=== PATIENT | female | born 1945 | race Asian ===

== ENCOUNTER 2018-10-26 18:56 | Inpatient (IN) | payer OTHER ==
[2018-10-26] MEDS ORDERED: FAMOTIDINE 20 MG/50 ML IVPB 20 MG/50 ML MG IVPB ONE (19:30)
[2018-10-26] MEDS ORDERED: SODIUM CHLORIDE 1,000 ML IV STA (19:30)
--- NOTE | 2018-10-26 19:54 | PDOC ---
History of Present Illness - General History Source: Patient, Family Exam Limitations: No Limitations, Language Barrier - History of Present Illness Initial Comments: 10/26/18 19:46 Source: Pt and Daughters at bedside HPI: 73yo woman PMH R Knee replacement, hysterectomy, DM, HLD, with epigastric pain for the past week. Patient experienced eigastric pain with meals, with associated nausea and NBNB vomiting several times. This started last , the nausea / vomiting worsened over the weekend and the patient presented to [facility], was diagnosed with gastritis and discharged. While home, patient felt better for two days (on pepcid and zofran at home) before worsening on Tuesday and deciding to come in today due to continued pain without an answer. The family feels a CT could help shed light on why their mother has developed new onset stomach pain in her 70s - and says that is the only thing that wasn't done at [facility]. Reports prior heartburn but this feels different and is more abdominal. Patient has had difficulty eating meals because of pain and has to be "forced" to eat. She has reportedly lost 5lbs in the past week due to this anorexia. She has taken Motrin, Alieve, and Tylenol in the past, but has not taken any of these things recently. Meds: per chart All: NKDA PSH: as above PMH: as above <Mat Carbajal - Last Filed: 10/26/18 21:46> <Aron Head I - Last Filed: 10/27/18 00:05> - General Chief Complaint: Pain, Acute Stated Complaint: abd pain Time Seen by Provider: 10/26/18 19:08 Past History - Travel Traveled outside of the country in the last 30 days: No Close contact w/someone who was outside of country & ill: No - Past Medical History Anemia: No Asthma: Yes Cancer: No Cardiac Disorders: No CVA: No COPD: No CHF: No Dementia: No Diabetes: Yes (NIDDM) GI Disorders: Yes (GERD) Disorders: No HTN: No Hypercholesterolemia: Yes Liver Disease: No Seizures: Yes (15 YEARS AGO) Thyroid Disease: No - Surgical History Abdominal Surgery: No Appendectomy: No Cardiac Surgery: No Cholecystectomy: No Lung Surgery: No Neurologic Surgery: Yes (BRAIN TUMOR REMOVED 15 YEARS AGO) Orthopedic Surgery: No - Suicide/Smoking/Psychosocial Hx Smoking History: Never smoked Have you smoked in the past 12 months: No Information on smoking cessation initiated: No Hx Alcohol Use: No Drug/Substance Use Hx: No Substance Use Type: None Hx Substance Use Treatment: No <Mat Carbajal - Last Filed: 10/26/18 21:46> <Aron Head I - Last Filed: 10/27/18 00:05> - Past Medical History Allergies/Adverse Reactions: Allergies Allergy/AdvReac Type Severity Reaction Status Date / Time No Known Drug Allergies Allergy Verified 10/26/18 18:57 Home Medications: Ambulatory Orders Aspirin 81 mg PO DAILY 05/14/13 Losartan Potassium [Cozaar] 50 mg PO DAILY 05/14/13 Simvastatin [Zocor -] 20 mg PO DAILY 05/14/13 Canagliflozin [Invokana] 100 mg PO DAILY 10/26/18 Famotidine [Pepcid] 20 mg PO DAILY 10/26/18 Glipizide [Glipizide ER] 10 mg PO DAILY 10/26/18 Metformin HCl [Glucophage] 1,000 mg PO BID 10/26/18 Sitagliptin Phosphate [Januvia] 50 mg PO DAILY 10/26/18 Review of Systems - Review of Systems Able to Perform ROS?: No (Per family / translating) Is the patient limited Georgian proficient: Yes Constitutional: No: Chills, Fever Respiratory: No: Cough, Shortness of Breath, Wheezing Cardiac (ROS): No: Chest Pain, Irregular Heart Rate, Syncope, Chest Tightness ABD/GI: Yes: Nausea, Poor Appetite, Poor Fluid Intake, Vomiting. No: Abdominal Distended, Blood Streaked Bowels, Constipated, Diarrhea, Rectal Bleeding, Abdominal cramping, Tarry Stools : No: Symptoms Reported Musculoskeletal: No: Symptoms Reported Integumentary: No: Symptoms Reported Neurological: No: Symptoms reported All Other Systems: Reviewed and Negative <Mat Carbajal - Last Filed: 10/26/18 21:46> *Physical Exam - Vital Signs Last Vital Signs Temp Pulse Resp BP Pulse Ox 98.6 F 72 14 160/80 98 10/26/18 18:56 10/26/18 18:56 10/26/18 18:56 10/26/18 18:56 10/26/18 19:31 - Physical Exam Comments: 10/26/18 19:59 Vitals reviewed, hypertensive to 160 SPB, otherwise AFVSS Gen: Elderly woman, resting in bed, no acute distress HEENT: normal morphologies, MMM, EOMI, sclera anicteric, no sublingual jaundice CV: RRR, nl s1/s2, no bruits, no murmurs Pulm: CTABL, normal WOB, no wheezes / rales / rhonchi Abd: soft, nontender, nondistended, no rashes / scars / markings Skin: Warm, dry, no jaundice evident Pulses: 2+ radial and PT Neuro: alert and oriented <Mat Carbajal - Last Filed: 10/26/18 21:46> - Vital Signs Last Vital Signs Temp Pulse Resp BP Pulse Ox 98.6 F 72 14 160/80 98 10/26/18 18:56 10/26/18 18:56 10/26/18 18:56 10/26/18 18:56 10/26/18 19:31 <Aron Head I - Last Filed: 10/27/18 00:05> ED Treatment Course - LABORATORY CBC & Chemistry Diagram: 10/26/18 19:30 10/26/18 19:30 - ADDITIONAL ORDERS Additional order review: Laboratory Results 10/26/18 19:11 POC Glucometer 231 10/26/18 19:11 POC Glucometer 231 - RADIOLOGY Radiology Studies Ordered: Category Date Time Status ABDOMEN/PELVIS CTA W/WO CONTR [CT] Stat CT Scan 10/26/18 19:42 Ordered <Mat Carbajal - Last Filed: 10/26/18 21:46> - LABORATORY CBC & Chemistry Diagram: 10/26/18 19:30 10/26/18 19:30 - ADDITIONAL ORDERS Additional order review: Laboratory Results 10/26/18 10/26/18 10/26/18 21:00 19:55 19:30 Sodium Potassium Chloride Carbon Dioxide Anion Gap BUN Creatinine Est GFR (CKD-EPI)AfAm Est GFR (CKD-EPI)NonAf POC Glucometer Random Glucose Lactic Acid 1.1 Calcium Total Bilirubin AST ALT Alkaline Phosphatase Creatine Kinase Troponin I Total Protein Albumin Lipase 370 Urine Color Yellow Urine Appearance Clear Urine pH 5.5 Urine Protein Negative Urine Glucose (UA) 2+ H Urine Ketones Trace Urine Blood 1+ H Urine Nitrite Negative Urine Bilirubin Negative Urine Urobilinogen 0.2 Ur Leukocyte Esterase Negative Urine RBC 2-5 Urine WBC 0-2 10/26/18 10/26/18 10/26/18 19:30 19:30 19:11 Sodium 134 L Potassium 4.8 Chloride 96 L Carbon Dioxide 29 Anion Gap 9 BUN 18.0 Creatinine 0.7 Est GFR (CKD-EPI)AfAm 100.32 Est GFR (CKD-EPI)NonAf 86.56 POC Glucometer 231 Random Glucose 253 H Lactic Acid Calcium 10.0 Total Bilirubin 0.2 AST 15 ALT 19 Alkaline Phosphatase 67 Creatine Kinase 42 Troponin I 0.04 Total Protein 7.5 Albumin 4.1 Lipase Urine Color Urine Appearance Urine pH Urine Protein Urine Glucose (UA) Urine Ketones Urine Blood Urine Nitrite Urine Bilirubin Urine Urobilinogen Ur Leukocyte Esterase Urine RBC Urine WBC 10/26/18 10/26/18 19:30 19:11 RBC 4.99 MCV 81.4 MCHC 33.4 RDW 13.0 MPV 8.8 Neutrophils % 70.9 Lymphocytes % 18.1 Monocytes % 9.9 Eosinophils % 0.7 Basophils % 0.4 POC Glucometer 231 - Medications Given in the ED: ED Medications Discontinued Medications Generic Name Dose Route Start Last Admin Trade Name Abimaelq PRN Reason Stop Dose Admin Famotidine/Sodium Chloride 20 mg in 50 mls @ 100 mls/hr 10/26/18 19:30 19:47 Pepcid 20 Mg Premixed Ivpb - IVPB 10/26/18 19:59 100 mls/hr ONCE ONE Administration Sodium Chloride 1,000 mls @ 1,000 mls/hr 10/26/18 19:30 10/26/18 19:45 Normal Saline - IV 10/26/18 20:29 1,000 mls/hr ASDIR STA Administration <Aron Head I - Last Filed: 10/27/18 00:05> Medical Decision Making - Medical Decision Making 10/26/18 19:54 73yo woman with PMH R Knee replacement, hysterectomy, DM, HLD, presenting with 1 week of epigastric pain, nausea / NBNB vomiting associated with meals. Notable for two ED visits in the past week. Exam notable for lack of abdominal tenderness - however patient is denying pain at time of exam as well. Given lack of tenderness, will r/o mesenteric ischemia, r/o ACS, and give empiric treatment for gastritis given it remains most likely. The temporal relationship with food points towards biliary pathology, however RUQ exam is unremarkable and there no need for RUQ US in patient with CTA ordered. -CBC, CMP, Cardiac Profile, Lipase, Lactate -CTA Abdomen / Pelvis w/w/o contrast -Pepcid 20mg IV -1L IVF 10/26/18 21:30 -No leukocytosis (8.3), no anemia -Na 134 (up from reported 128) -BGM 231 on arrival, Glu 253 in CMP -Lactate 1.1 -Lipase 370 -Troponin 0.04 -UA without signs of UTI -CTA pending 10/26/18 21:[address] Dove <Mat Carbajal - Last Filed: 10/26/18 21:46> *DC/Admit/Observation/Transfer <Mat Carbajal - Last Filed: 10/26/18 21:46> - Discharge Dispostion Decision to Admit order: Yes <Aron Head I - Last Filed: 10/27/18 00:05> Diagnosis at time of Disposition: Epigastric pain Gastritis Qualifiers: Gastritis type: unspecified gastritis Chronicity: acute Gastritis bleeding: without bleeding Qualified Code(s): K29.00 - Acute gastritis without bleeding - Discharge Dispostion Condition at time of disposition: Stable
[2018-10-26 20:06] LABS: BASO % 0.4 % (0-2.0); EOS % 0.7 % (0-4.5); HEMATOCRIT 40.6 % (32.4-45.2); HEMOGLOBIN 13.6 GM/dl (10.7-15.3); LYMPH % 18.1 % (8-40); MCH 27.2 pg (25.7-33.7); MCHC 33.4 g/dl (32.0-36.0); MEAN CELL VOLUME 81.4 fl (80-96); MEAN PLT VOLUME 8.8 fl (7.5-11.1); MONO % 9.9 % (3.8-10.2); NEUT % 70.9 % (42.8-82.8); PLATELET COUNT 369 K/MM3 (134-434); RBC 4.99 M/mm3 (3.60-5.2); WHITE BLOOD COUNT 8.3 K/mm3 (4.0-10.8)
[2018-10-26 20:10] LABS: ALBUMIN 4.1 g/dl (3.4-5.0); BILIRUBIN,TOTAL 0.2 mg/dl (0.2-1); CREATININE 0.7 mg/dl (0.55-1.3); POTASSIUM 4.8 mmol/L (3.5-5.1); TOT PROT 7.5 g/dl (6.4-8.2)
--- NOTE | 2018-10-26 22:08 | PDOC ---
Documentation entered by Mónica Horowitz SCRIBE, acting as scribe for Aron Head MD. Aron Head MD: This documentation has been prepared by the Carlos Manuel morales Xhesika, SCRIBE, under my direction and personally reviewed by me in its entirety. I confirm that the documentation accurately reflects all work, treatment, procedures, and medical decision making performed by me. Attending Attestation - Resident Resident Name: SolomonMat - ED Attending Attestation I have performed the following: I have examined & evaluated the patient, The case was reviewed & discussed with the resident, I agree w/resident's findings & plan, Exceptions are as noted - HPI HPI: 10/26/18 19:46 The patient is a 73 year old female, with a significant PMH of DM, HLD, and R knee hysterectomy who presents to the emergency department with 1 week of epigastric pain. Patient is non argentine speaking so family at bedside provides the history. As per family, the patient was seen at [facility] on Tuesday for epigastric pain associated with nausea and vomiting that has not subsided which prompted their arrival to the ED. Patient states her pain is associated with meals. Patient states she has been taking pepcid and drinking fluids with mild relief of symptoms. Pt notes she has been eating less due to her pain and notes she has lost 5 pounds since the onset of her symptoms. FAMILY HISTORY: no pertinent history SOCIAL HISTORY: Pt lives with family and is employed. MEDICATIONS: reviewed ALLERGIES: As per nursing notes - Physicial Exam PE: 10/26/18 19:47 General: Well-nourished well-developed individual, no acute distress HEENT: Throat: Normal, tonsils normal, no erythema or exudate Neck: Supple, no meningeal signs, no lymphadenopathy Eyes::Pupils equal reactive and round, extraocular motion intact Chest: Nontender to palpation Cardiac: S1-S2 normal, regular rate and rhythm, no murmurs rubs or gallops Respiratory: Lungs clear to auscultation bilateral Abdomen: Soft, nondistended, normal bowel sounds, nontender to palpation diffusely Extremities: Warm, dry, no cyanosis, clubbing, or edema Skin: No rashes Neuro: Alert and oriented x3, nonfocal exam, grossly intact, normal gait Psych: Normal mood and affect - Medical Decision Making 10/26/18 19:48 Assessment and plan: This is a 73-year-old female with history of hypertension , coronary artery disease, diabetes, high cholesterol who comes in complaining of approximately one week of epigastric pain. Patient was at another emergency room 3 days ago for similar symptoms and was discharged with antacids. Patient has been taking them says that they are not helping. Patient now returns for reevaluation to our emergency department. Workup initiated including CBC, comp, lactic acid, lipase, cardiac enzymes, chest x-ray, EKG, ETA CAT scan of the abdomen to rule out mesenteric ischemia as well as any other intra-abdominal pathology. 10/26/18 23:49 CAT scan shows a number of incidental type findings. The there is a cyst in the pancreatic tail that is 1.7 x 1 cm. There is some mild, and bile duct dilation of 0.8 cm previously was 0.5 cm there is a fatty liver, there is a left adrenal nodule of 1.5 cm seen on prior CT. There is a left adrenal angiomyolipoma seen on prior CT. There is a diverticulum seen on prior CT. And there are 2 areas that are partially imaged in the right lower lobe most likely inflammatory but may be nodules. Discussed with patient and family findings from the CAT scan and recommended that patient follow up with a surgeon for possible gallbladder removal as well as with her primary care doctor further evaluate the inflammatory/scarring of the lungs versus nodules. 10/26/18 23:51 Patient's troponin was measurable at 0.04 but still within normal limits. Patient's heart score however is 5 based on her age and multiple risk factors and an abnormal EEG so patient will be placed in observation bed to rule her out. 10/26/18 23:52 Heart Score/ECG Review - History History: Slightly suspicious - Electrocardiogram EKG: Non specific repolarization disturbance - Age Age: >/= 65 - Risk Factors Based on the list above the patient has:: >/=3 risk factors or Hx atherosclerotic disease - Troponin Troponin: </= normal limit - Score Heart Score - Total: 5
[2018-10-27] MEDS ORDERED: SODIUM CHLORIDE 1,000 ML IV SCH (01:00)
[2018-10-27 01:26] VITALS: BMI 25.0
[2018-10-27 07:50] LABS: CALCIUM 9.5 mg/dl (8.5-10); CREATININE 0.6 mg/dl (0.55-1.3); POTASSIUM 4.2 mmol/L (3.5-5.1)
[2018-10-27 07:56] LABS: HEMATOCRIT 40.7 % (32.4-45.2); HEMOGLOBIN 13.6 GM/dl (10.7-15.3); MCH 27.6 pg (25.7-33.7); MCHC 33.5 g/dl (32.0-36.0); MEAN CELL VOLUME 82.6 fl (80-96); MEAN PLT VOLUME 8.6 fl (7.5-11.1); PLATELET COUNT 357 K/MM3 (134-434); RBC 4.93 M/mm3 (3.60-5.2); RDW 13.3 % (11.6-15.6); WHITE BLOOD COUNT 7.2 K/mm3 (4.0-10.8)
--- NOTE | 2018-10-27 08:31 | HP ---
CHIEF COMPLAINT: Abdominal pain PCP: Dr. Lora Cardiology: Dr. Arceo HISTORY OF PRESENT ILLNESS: 73 year-old female with a PMH significant for HLD, Type II NIDDM, and GERD who was brought by family to the ED for evaluation of abdominal pain, nausea, and vomiting x 1 week. Patient experienced epigastric pain, nausea, and vomiting with meals that began on 10/19. Over the weekend she presented to the [facility] ED, was diagnosed with gastritis, and discharged. Her symptoms improved with Pepcid and Zofran, but then worsened again prompting her to come to the [place] ED. Patient reports difficulty eating meals because of pain and has to be "forced" to eat. She has lost 5 lbs in the past week. ER course was notable for: (1) Troponin neg x 2 (2) CTA abd/pelvis: 1.7 x 1 cm pancreatic tail cystic lesion; dilated CBD 0.8cm Recent Travel: PAST MEDICAL HISTORY: Hyperlipidemia Type II NIDDM GERD Seizure x 15 years ago PAST SURGICAL HISTORY: Hysterectomy-right salpingo-oopherectomy 2014 Suburethral sling Brain tumor resection x 15 years Right knee replacement Social History: Smoking: never Alcohol: no Drugs: no Family History: Allergies No Known Drug Allergies Allergy (Verified 10/26/18 18:57) HOME MEDICATIONS: Home Medications Medication Instructions Recorded Aspirin 81 mg PO DAILY 05/14/13 Losartan Potassium [Cozaar] 50 mg PO DAILY 05/14/13 Simvastatin [Zocor -] 20 mg PO DAILY 05/14/13 Canagliflozin [Invokana] 100 mg PO DAILY 10/26/18 Famotidine [Pepcid] 20 mg PO DAILY 10/26/18 Glipizide [Glipizide ER] 10 mg PO DAILY 10/26/18 Metformin HCl [Glucophage] 1,000 mg PO BID 10/26/18 Sitagliptin Phosphate [Januvia] 50 mg PO DAILY 10/26/18 REVIEW OF SYSTEMS CONSTITUTIONAL: Absent: fever, chills, diaphoresis, generalized weakness, malaise, loss of appetite, weight change HEENT: Absent: rhinorrhea, nasal congestion, throat pain, throat swelling, difficulty swallowing, mouth swelling, ear pain, eye pain, visual changes CARDIOVASCULAR: Absent: chest pain, syncope, palpitations, irregular heart rate, lightheadedness , peripheral edema RESPIRATORY: Absent: cough, shortness of breath, dyspnea with exertion, orthopnea, wheezing, stridor, hemoptysis GASTROINTESTINAL: Absent: abdominal pain, abdominal distension, nausea, vomiting, diarrhea, constipation, melena, hematochezia GENITOURINARY: Absent: dysuria, frequency, urgency, hesitancy, hematuria, flank pain, genital pain MUSCULOSKELETAL: Absent: myalgia, arthralgia, joint swelling, back pain, neck pain SKIN: Absent: rash, itching, pallor HEMATOLOGIC/IMMUNOLOGIC: Absent: easy bleeding, easy bruising, lymphadenopathy, frequent infections ENDOCRINE: Absent: unexplained weight gain, unexplained weight loss, heat intolerance, cold intolerance NEUROLOGIC: Absent: headache, focal weakness or paresthesias, dizziness, unsteady gait, seizure, mental status changes, bladder or bowel incontinence PSYCHIATRIC: Absent: anxiety, depression, suicidal or homicidal ideation, hallucinations. PHYSICAL EXAMINATION Vital Signs - 24 hr 10/26/18 10/26/18 10/27/18 18:56 19:31 00:44 Temperature 98.6 F 98.4 F Pulse Rate 72 Pulse Rate [ 67 Left] Respiratory 14 18 Rate Blood Pressure 160/80 Blood Pressure 141/80 [Right Arm] O2 Sat by Pulse 96 98 97 Oximetry (%) 10/27/18 10/27/18 10/27/18 01:07 01:33 06:25 Temperature 98.5 F Pulse Rate 63 Pulse Rate [ Left] Respiratory 18 Rate Blood Pressure 135/56 L Blood Pressure [Right Arm] O2 Sat by Pulse 100 100 99 Oximetry (%) 10/27/18 06:27 Temperature 98.5 F Pulse Rate 73 Pulse Rate [ Left] Respiratory 18 Rate Blood Pressure 149/67 Blood Pressure [Right Arm] O2 Sat by Pulse Oximetry (%) GENERAL: Awake, alert, and fully oriented, in no acute distress. Feels hungry. LUNGS: Breath sounds equal, clear to auscultation bilaterally. No wheezes, and no crackles. No accessory muscle use. HEART: Regular rate and rhythm, S1 and S2 ABDOMEN: Soft, nontender, not distended, normoactive bowel sounds UPPER EXTREMITIES: 2+ pulses, warm, well-perfused. No cyanosis. No clubbing. No peripheral edema. LOWER EXTREMITIES: 2+ pulses, warm, well-perfused. No calf tenderness. No peripheral edema. NEUROLOGICAL: Cranial nerves II-XII intact. Normal speech. Normal gait. Laboratory Results - last 24 hr 10/26/18 10/26/18 10/26/18 19:11 19:30 19:30 WBC RBC Hgb Hct MCV MCH MCHC RDW Plt Count MPV Absolute Neuts (auto) Neutrophils % Lymphocytes % Monocytes % Eosinophils % Basophils % Sodium 134 L Potassium 4.8 Chloride 96 L Carbon Dioxide 29 Anion Gap 9 BUN 18.0 Creatinine 0.7 Est GFR (CKD-EPI)AfAm 100.32 Est GFR (CKD-EPI)NonAf 86.56 POC Glucometer 231 Random Glucose 253 H Lactic Acid Calcium 10.0 Total Bilirubin 0.2 AST 15 ALT 19 Alkaline Phosphatase 67 Creatine Kinase 42 Troponin I 0.04 Total Protein 7.5 Albumin 4.1 Lipase Urine Color Urine Appearance Urine pH Urine Protein Urine Glucose (UA) Urine Ketones Urine Blood Urine Nitrite Urine Bilirubin Urine Urobilinogen Ur Leukocyte Esterase Urine RBC Urine WBC 10/26/18 10/26/18 10/26/18 19:30 19:30 19:55 WBC 8.3 RBC 4.99 Hgb 13.6 Hct 40.6 MCV 81.4 MCH 27.2 MCHC 33.4 RDW 13.0 Plt Count 369 MPV 8.8 Absolute Neuts (auto) 5.9 Neutrophils % 70.9 Lymphocytes % 18.1 Monocytes % 9.9 Eosinophils % 0.7 Basophils % 0.4 Sodium Potassium Chloride Carbon Dioxide Anion Gap BUN Creatinine Est GFR (CKD-EPI)AfAm Est GFR (CKD-EPI)NonAf POC Glucometer Random Glucose Lactic Acid 1.1 Calcium Total Bilirubin AST ALT Alkaline Phosphatase Creatine Kinase Troponin I Total Protein Albumin Lipase 370 Urine Color Urine Appearance Urine pH Urine Protein Urine Glucose (UA) Urine Ketones Urine Blood Urine Nitrite Urine Bilirubin Urine Urobilinogen Ur Leukocyte Esterase Urine RBC Urine WBC 10/26/18 10/27/18 10/27/18 21:00 02:00 06:14 WBC RBC Hgb Hct MCV MCH MCHC RDW Plt Count MPV Absolute Neuts (auto) Neutrophils % Lymphocytes % Monocytes % Eosinophils % Basophils % Sodium Potassium Chloride Carbon Dioxide Anion Gap BUN Creatinine Est GFR (CKD-EPI)AfAm Est GFR (CKD-EPI)NonAf POC Glucometer 91 Random Glucose Lactic Acid Calcium Total Bilirubin AST ALT Alkaline Phosphatase Creatine Kinase Troponin I 0.03 Total Protein Albumin Lipase Urine Color Yellow Urine Appearance Clear Urine pH 5.5 Urine Protein Negative Urine Glucose (UA) 2+ H Urine Ketones Trace Urine Blood 1+ H Urine Nitrite Negative Urine Bilirubin Negative Urine Urobilinogen 0.2 Ur Leukocyte Esterase Negative Urine RBC 2-5 Urine WBC 0-2 10/27/18 10/27/18 07:00 07:00 WBC 7.2 RBC 4.93 Hgb 13.6 Hct 40.7 MCV 82.6 MCH 27.6 MCHC 33.5 RDW 13.3 Plt Count 357 MPV 8.6 Absolute Neuts (auto) Neutrophils % Lymphocytes % Monocytes % Eosinophils % Basophils % Sodium 137 Potassium 4.2 Chloride 99 Carbon Dioxide 30 Anion Gap 8 BUN 14.0 Creatinine 0.6 Est GFR (CKD-EPI)AfAm 105.54 Est GFR (CKD-EPI)NonAf 91.06 POC Glucometer Random Glucose 109 H Lactic Acid Calcium 9.5 Total Bilirubin AST ALT Alkaline Phosphatase Creatine Kinase Troponin I Total Protein Albumin Lipase Urine Color Urine Appearance Urine pH Urine Protein Urine Glucose (UA) Urine Ketones Urine Blood Urine Nitrite Urine Bilirubin Urine Urobilinogen Ur Leukocyte Esterase Urine RBC Urine WBC ASSESSMENT/PLAN 73 year-old female with a PMH significant for HLD, Type II NIDDM, and GERD. Admitted for epigastric pain, nausea, vomiting x 1 week. Epigastric pain Nausea, vomiting h/o GERD --afebrile, no leukocytosis --CTAP: dilated CBC 0.8cm but LFTs wnl, gallbladder unremarkable --IV protonix --discussed with GI, trial of PPI with outpatient EGD, advance diet as tolerated Pancreatic tail cystic lesion --CTAP: 1.7 x 1.0 cm seen on CTA --needs outpatient follow up r/o ACS --troponins neg x 3 --echo done pending dictation --telemetry monitoring --cardiology consult Hyperlipidemia --continue Lipitor Type II NIDDM --Novolog sliding scale coverage --continue losartan FEN Fluids: NS@75mL/hr Electrolytes: replete as indicated Nutrition: clears DVT prophylaxis: subq lovenox Dispo: continues to require inpatient care. Discussed with daughter Pancreatic tail cystic lesion Dilated CBD 0.8cm Visit type - Emergency Visit Emergency Visit: Yes ED Registration Date: 10/27/18 Care time: The patient presented to the Emergency Department on the above date and was hospitalized for further evaluation of their emergent condition. - New Patient This patient is new to me today: Yes Date on this admission: 10/27/18 - Critical Care Critical Care patient: No
[2018-10-27] MEDS ORDERED: FAMOTIDINE 20 MG TABLET PO SCH (10:00)
[2018-10-27] MEDS ORDERED: LOSARTAN POTASSIUM 50 MG TABLET (FP) PO SCH (10:00)
[2018-10-27] MEDS ORDERED: INSULIN SLIDING SCALE (NOVOLOG) 1 VIAL SQ SCH (11:00)
[2018-10-27] MEDS ORDERED: PANTOPRAZOLE SODIUM 40 MG VIAL IVPUSH SCH (11:15)
--- NOTE | 2018-10-27 11:31 | EKG ---
Test Reason : Blood Pressure : / mmHG Vent. Rate : 068 BPM Atrial Rate : 068 BPM P-R Int : 140 ms QRS Dur : 136 ms QT Int : 470 ms P-R-T Axes : 041 -40 010 degrees QTc Int : 499 ms NORMAL SINUS RHYTHM LEFT AXIS DEVIATION RIGHT BUNDLE BRANCH BLOCK NONSPECIFIC T WAVE ABNORMALITY ABNORMAL ECG WHEN COMPARED WITH ECG OF 14-MAY-2013 13:27, NO SIGNIFICANT CHANGE WAS FOUND Confirmed by ARAVIND RASHID, MARAH ([id number]) on 10/27/2018 11:31:23 AM Referred By: DR RIZZO Confirmed By:MARAH NAAZRIO MD
[2018-10-27] MEDS ORDERED: ENOXAPARIN NA (PORCINE) 40 MG/0.4 ML DISP.SYRIN SQ SCH (13:45)
[2018-10-27 14:00] VITALS: BP 117/55; PULSE 61; TEMP 98.1
--- NOTE | 2018-10-27 14:40 | ECHO ---
Name: INÉS MORGAN Exam:Adult Echocardiogram Study Date: 10/27/2018 01:42 PM Age: 73 yrs Reason For Study: epigastric pain Height: 63 in Weight: 141 lb BSA: 1.7 m2 MMode/2D Measurements & Calculations IVSd: 1.2 cm Ao root diam: 2.9 cm LVIDd: 4.3 cm LA dimension: 2.9 cm LVIDs: 2.9 cm LVPWd: 1.1 cm EDV(Teich): 81.9 ml LVOT diam: 2.0 cm ESV(Teich): 32.1 ml Doppler Measurements & Calculations MV E max carin: 62.5 cm/sec MV A max carin: 83.3 cm/sec MV dec slope: 330.6 cm/sec2 MV E/A: 0.75 Ao V2 max: 175.1 cm/sec LV V1 max P.7 mmHg Ao max P.3 mmHg LV V1 max: 138.6 cm/sec VIRGINIE(V,D): 2.5 cm2 TR max carin: 198.9 cm/sec TR max P.8 mmHg Left Ventricle There is mild concentric left ventricular hypertrophy. Left ventricular systolic function is normal. Ejection Fraction = 55-60%. The transmitral spectral Doppler flow pattern is suggestive of impaired LV relaxat ion. The left ventricular wall motion is normal. Right Ventricle The right ventricle is normal in size and function. Atria Normal left and right atrial size and function. Mitral Valve The mitral valve is normal in structure and function. There is no mitral valve stenosis. There is tra ce to mild mitral regurgitation. Tricuspid Valve The tricuspid valve is normal in structure and function. There is Trace to mild tricuspid regurgitati on. Aortic Valve The aortic valve opens well. No hemodynamically significant valvular aortic stenosis. Mild aortic regurgitation. Pulmonic Valve The pulmonic valve is not well seen, but is grossly normal. There is no pulmonic valvular stenosis. T race pulmonic valvular regurgitation. Great Vessels The aortic root is normal size. Pericardium/Pleura There is no pericardial effusion. Interpretation Summary There is mild concentric left ventricular hypertrophy. Left ventricular systolic function is normal. Ejection Fraction = 55-60%. The right ventricle is normal in size and function. Mild aortic regurgitation. There is trace to mild mitral regurgitation. The aortic root is normal size. There is no pericardial effusion. MD Odom *Ernie 10/27/2018 02:39 PM
--- NOTE | 2018-10-27 15:29 | CON.CARD ---
Consult Consult Specialty:: Cardiology Referred by:: Medicine Reason for Consultation:: epigastric pain - History of Present Illness Chief Complaint: epigastric pain, nausea, vomiting History of Present Illness: 73F h/o HLD, DM, GERD p/w abd pain, nausea, vomiting for the last week. Went to [facility] and was diagnosed with gastritis and discharged, symptoms initially improved with pepcid and zofran and then had worsening symptoms again where she was vomiting. No chest pain, palps, dizziness, dyspnea. Currently feels better , no nausea, abd pain Pancreatic tail cystic lesion Dilated CBD 0.8cm Visit type - Emergency Visit Emergency Visit: Yes ED Registration Date: 10/27/18 Care time: The patient presented to the Emergency Department on the above date and was hospitalized for further evaluation of their emergent condition. - New Patient This patient is new to me today: Yes Date on this admission: 10/27/18 - Critical Care Critical Care patient: No - Past Medical History ...: No - Alcohol/Substance Use Hx Alcohol Use: No - Smoking History Smoking history: Never smoked Have you smoked in the past 12 months: No Home Medications - Allergies Allergies/Adverse Reactions: Allergies Allergy/AdvReac Type Severity Reaction Status Date / Time No Known Drug Allergies Allergy Verified 10/26/18 18:57 - Home Medications Home Medications: Ambulatory Orders Aspirin 81 mg PO DAILY 05/14/13 Losartan Potassium [Cozaar] 50 mg PO DAILY 05/14/13 Simvastatin [Zocor -] 20 mg PO DAILY 05/14/13 Canagliflozin [Invokana] 100 mg PO DAILY 10/26/18 Famotidine [Pepcid] 20 mg PO DAILY 10/26/18 Glipizide [Glipizide ER] 10 mg PO DAILY 10/26/18 Metformin HCl [Glucophage] 1,000 mg PO BID 10/26/18 Sitagliptin Phosphate [Januvia] 50 mg PO DAILY 10/26/18 Family Disease History - Family Disease History Family History: Unremarkable Review of Systems - Review of Systems Constitutional: reports: No Symptoms Eyes: reports: No Symptoms HENT: reports: No Symptoms Neck: reports: No Symptoms Cardiovascular: reports: No Symptoms Respiratory: reports: No Symptoms Gastrointestinal: reports: Abdominal Pain, Vomiting Genitourinary: reports: No Symptoms Musculoskeletal: reports: No Symptoms Integumentary: reports: No Symptoms Neurological: reports: No Symptoms Endocrine: reports: No Symptoms Hematology/Lymphatic: reports: No Symptoms Psychiatric: reports: No Symptoms Vital Signs: Vital Signs Temperature 98.1 F 10/27/18 13:59 Pulse Rate 61 10/27/18 13:59 Respiratory Rate 17 10/27/18 13:59 Blood Pressure 117/55 L 10/27/18 13:59 O2 Sat by Pulse Oximetry (%) 96 10/27/18 13:59 Constitutional: Yes: Well Nourished, No Distress, Calm Eyes: Yes: Conjunctiva Clear, EOM Intact HENT: Yes: Atraumatic, Normocephalic Neck: Yes: Supple, Trachea Midline Respiratory: Yes: Regular, CTA Bilaterally Gastrointestinal: Yes: Normal Bowel Sounds, Soft Cardiovascular: Yes: Regular Rate and Rhythm JVD: No Heart Sounds: Yes: S1, S2 Edema: No Peripheral Pulses WNL: Yes Integumentary: No: Jaundice Neurological: Yes: Alert, Oriented Psychiatric: No: Agitated - Other Data Labs, Other Data: CBC, BMP 10/27/18 07:00 10/27/18 07:00 Troponin, BNP 10/26/18 10/27/18 10/27/18 19:30 02:00 11:10 Troponin I 0.04 0.03 0.04 Troponin, BNP 10/26/18 10/27/18 10/27/18 19:30 02:00 11:10 Troponin I 0.04 0.03 0.04 Assessment/Plan EKG: sinus, LAD, RBBB echo 10/2018 mild conc LVH, nl LV function, RV nl, mild AR, tr to mild MR 73F h/o HLD, DM, GERD p/w epigastric pain, nausea, vomiting Epigastric pain, nausea, vomiting - trop neg x 3, EKG no ischemic changes - unlikely ACS - echo unremarkable, less likely cardiac etiology - GI consulted - has pancreatic cyst and mildly dilated CBD, plan for outpatient MRCP and EGD HLD - cont statin DM - manage per primary - cont losartan
--- NOTE | 2018-10-27 15:42 | DS ---
Physical Exam: SUBJECTIVE: Patient seen and examined OBJECTIVE: Vital Signs Period Temp Pulse Resp BP Sys/Harrison Pulse Ox Last 24 Hr 98.1 F-98.6 F 61-73 14-18 117-160/55-80 96-100 PHYSICAL EXAM GENERAL: The patient is awake, alert, and fully oriented, in no acute distress. HEAD: Normal with no signs of trauma. EYES: PERRL, extraocular movements intact, sclera anicteric, conjunctiva clear. ENT: Ears normal, nares patent, oropharynx clear without exudates, moist mucous membranes. NECK: Trachea midline, full range of motion, supple. LUNGS: Breath sounds equal, clear to auscultation bilaterally, no wheezes, no crackles, no accessory muscle use. HEART: Regular rate and rhythm, S1, S2 without murmur, rub or gallop. ABDOMEN: Soft, nontender, nondistended, normoactive bowel sounds, no guarding, no rebound, no hepatosplenomegaly, no masses. EXTREMITIES: 2+ pulses, warm, well-perfused, no edema. NEUROLOGICAL: Cranial nerves II through XII grossly intact. Normal speech, gait not observed. PSYCH: Normal mood, normal affect. SKIN: Warm, dry, normal turgor, no rashes or lesions noted. LABS Laboratory Results - last 24 hr 10/26/18 10/26/18 10/26/18 19:11 19:30 19:30 WBC RBC Hgb Hct MCV MCH MCHC RDW Plt Count MPV Absolute Neuts (auto) Neutrophils % Lymphocytes % Monocytes % Eosinophils % Basophils % Sodium 134 L Potassium 4.8 Chloride 96 L Carbon Dioxide 29 Anion Gap 9 BUN 18.0 Creatinine 0.7 Est GFR (CKD-EPI)AfAm 100.32 Est GFR (CKD-EPI)NonAf 86.56 POC Glucometer 231 Random Glucose 253 H Lactic Acid Calcium 10.0 Total Bilirubin 0.2 AST 15 ALT 19 Alkaline Phosphatase 67 Creatine Kinase 42 Troponin I 0.04 Total Protein 7.5 Albumin 4.1 Lipase Urine Color Urine Appearance Urine pH Urine Protein Urine Glucose (UA) Urine Ketones Urine Blood Urine Nitrite Urine Bilirubin Urine Urobilinogen Ur Leukocyte Esterase Urine RBC Urine WBC 10/26/18 10/26/18 10/26/18 19:30 19:30 19:55 WBC 8.3 RBC 4.99 Hgb 13.6 Hct 40.6 MCV 81.4 MCH 27.2 MCHC 33.4 RDW 13.0 Plt Count 369 MPV 8.8 Absolute Neuts (auto) 5.9 Neutrophils % 70.9 Lymphocytes % 18.1 Monocytes % 9.9 Eosinophils % 0.7 Basophils % 0.4 Sodium Potassium Chloride Carbon Dioxide Anion Gap BUN Creatinine Est GFR (CKD-EPI)AfAm Est GFR (CKD-EPI)NonAf POC Glucometer Random Glucose Lactic Acid 1.1 Calcium Total Bilirubin AST ALT Alkaline Phosphatase Creatine Kinase Troponin I Total Protein Albumin Lipase 370 Urine Color Urine Appearance Urine pH Urine Protein Urine Glucose (UA) Urine Ketones Urine Blood Urine Nitrite Urine Bilirubin Urine Urobilinogen Ur Leukocyte Esterase Urine RBC Urine WBC 10/26/18 10/27/18 10/27/18 21:00 02:00 06:14 WBC RBC Hgb Hct MCV MCH MCHC RDW Plt Count MPV Absolute Neuts (auto) Neutrophils % Lymphocytes % Monocytes % Eosinophils % Basophils % Sodium Potassium Chloride Carbon Dioxide Anion Gap BUN Creatinine Est GFR (CKD-EPI)AfAm Est GFR (CKD-EPI)NonAf POC Glucometer 91 Random Glucose Lactic Acid Calcium Total Bilirubin AST ALT Alkaline Phosphatase Creatine Kinase Troponin I 0.03 Total Protein Albumin Lipase Urine Color Yellow Urine Appearance Clear Urine pH 5.5 Urine Protein Negative Urine Glucose (UA) 2+ H Urine Ketones Trace Urine Blood 1+ H Urine Nitrite Negative Urine Bilirubin Negative Urine Urobilinogen 0.2 Ur Leukocyte Esterase Negative Urine RBC 2-5 Urine WBC 0-2 10/27/18 10/27/18 10/27/18 07:00 07:00 09:51 WBC 7.2 RBC 4.93 Hgb 13.6 Hct 40.7 MCV 82.6 MCH 27.6 MCHC 33.5 RDW 13.3 Plt Count 357 MPV 8.6 Absolute Neuts (auto) Neutrophils % Lymphocytes % Monocytes % Eosinophils % Basophils % Sodium 137 Potassium 4.2 Chloride 99 Carbon Dioxide 30 Anion Gap 8 BUN 14.0 Creatinine 0.6 Est GFR (CKD-EPI)AfAm 105.54 Est GFR (CKD-EPI)NonAf 91.06 POC Glucometer 96 Random Glucose 109 H Lactic Acid Calcium 9.5 Total Bilirubin AST ALT Alkaline Phosphatase Creatine Kinase Troponin I Total Protein Albumin Lipase Urine Color Urine Appearance Urine pH Urine Protein Urine Glucose (UA) Urine Ketones Urine Blood Urine Nitrite Urine Bilirubin Urine Urobilinogen Ur Leukocyte Esterase Urine RBC Urine WBC 08/16/19 08/16/19 08/16/19 11:10 11:10 14:26 WBC RBC Hgb Hct MCV MCH MCHC RDW Plt Count MPV Absolute Neuts (auto) Neutrophils % Lymphocytes % Monocytes % Eosinophils % Basophils % Sodium Potassium Chloride Carbon Dioxide Anion Gap BUN Creatinine Est GFR (CKD-EPI)AfAm Est GFR (CKD-EPI)NonAf POC Glucometer 174 Random Glucose Lactic Acid Calcium Total Bilirubin AST ALT Alkaline Phosphatase Creatine Kinase Troponin I 0.04 Total Protein Albumin Lipase 244 Urine Color Urine Appearance Urine pH Urine Protein Urine Glucose (UA) Urine Ketones Urine Blood Urine Nitrite Urine Bilirubin Urine Urobilinogen Ur Leukocyte Esterase Urine RBC Urine WBC HOSPITAL COURSE: Date of Admission:10/27/18 Date of Discharge: 10/27/18 Pre hospital course 73 year-old female with a PMH significant for HLD, Type II NIDDM, and GERD who was brought by family to the ED for evaluation of abdominal pain, nausea, and vomiting x 1 week. Patient experienced epigastric pain, nausea, and vomiting with meals that began on 10/19. Over the weekend she presented to the [facility] ED, was diagnosed with gastritis, and discharged. Her symptoms improved with Pepcid and Zofran, but then worsened again prompting her to come to the [facility] ED. Patient reports difficulty eating meals because of pain and has to be "forced" to eat. She has lost 5 lbs in the past week. ER course (1) Troponin neg x 2 (2) CTA abd/pelvis: 1.7 x 1 cm pancreatic tail cystic lesion; dilated CBD 0.8cm Subsequent hospital course 73 year-old female with a PMH significant for HLD, Type II NIDDM, and GERD. Admitted for epigastric pain, nausea, vomiting x 1 week. Epigastric pain Nausea, vomiting h/o GERD --afebrile, no leukocytosis --CTAP: dilated CBC 0.8cm but LFTs wnl, gallbladder unremarkable --discussed with GI, trial of PPI with outpatient EGD, MRCP Pancreatic tail cystic lesion --CTAP: 1.7 x 1.0 cm seen on CTA --needs outpatient follow up, EUS r/o ACS --troponins neg x 3 --ECG: no ischemic changes --echo: mild concentric LVH, LV fxn normal, EF 55-60%; RV fxn normal; mild AI , trace to mild MR --seen and evaluated by cardiology, no further workup Hyperlipidemia --continue Lipitor Type II NIDDM --Novolog sliding scale coverage --continued losartan Minutes to complete discharge: 35 Discharge Summary Reason For Visit: abd pain Current Active Problems Epigastric pain (Acute) Gastritis (Acute) Condition: Improved - Instructions Diet, Activity, Other Instructions: Advance your diet very slowly. Keep to clear liquids for 24 hours. Eat only those foods that agree with you. Avoid spicey foods. Drink plenty of liquids, stay well-hydrated. It is recommended you follow up with a GI specialist. If you choose, you may wish to see Dr. Navjot Walter, [facility], [address] [place] [address]. [phone]. It is recommended you stop taking aspirin until you see the GI specialist as this can cause irritation of the stomach. Stop taking pepcid. Instead, start taking protonix. A prescription has been sent to your pharmacy. Referrals: Navjot Moore Dr. [Other] Disposition: HOME - Home Medications Comprehensive Discharge Medication List: Ambulatory Orders Losartan Potassium [Cozaar] 50 mg PO DAILY 05/14/13 Simvastatin [Zocor -] 20 mg PO DAILY 05/14/13 Canagliflozin [Invokana] 100 mg PO DAILY 10/26/18 Glipizide [Glipizide ER] 10 mg PO DAILY 10/26/18 Metformin HCl [Glucophage] 1,000 mg PO BID 10/26/18 Sitagliptin Phosphate [Januvia] 50 mg PO DAILY 10/26/18 Pantoprazole Sodium [Protonix] 40 mg PO DAILY #30 tablet. 10/27/18 This patient is new to me today: Yes Date on this admission: 10/27/18 Emergency Visit: Yes ED Registration Date: 10/27/18 Care time: The patient presented to the Emergency Department on the above date and was hospitalized for further evaluation of their emergent condition. Critical Care patient: No - Discharge Referral Referred to [facility] Med P.C.: No
[2018-10-27] MEDS ORDERED: ATORVASTATIN CA 10 MG TABLET (FP) PO SCH (22:00)
== END 2018-10-27 16:12 | disposition home or self-care (01) | DRG 392 ==
LOC: FER 18:56 → FM/S 10-27 00:30
PROVIDERS: ADMIT Internal Medicine; ATTEND Nurse Practitioner Acute Care
DX: K29.70 Gastritis, unspecified, without bleeding (principal); K86.2 Cyst of pancreas; E78.5 Hyperlipidemia, unspecified; E11.9 Type 2 diabetes mellitus without complications; K21.9 Gastro-esophageal reflux disease without esophagitis; J45.909 Unspecified asthma, uncomplicated; R11.2 Nausea with vomiting, unspecified; I45.10 Unspecified right bundle-branch block; I08.0 Rheumatic disorders of both mitral and aortic valves; Z96.651 Presence of right artificial knee joint
CPT/HCPCS: 36415; 74174-TC; 80048; 80053; 81003; 81015; 82550; 82962; 83605; 83690; 84484; 85025; 85027; 87086; 93005; 93306-TC; 99285-25; J7030

== ENCOUNTER 2021-05-11 17:00 | Emergency (ER) | payer OTHER ==
[2021-05-11] MEDS ORDERED: SODIUM CHLORIDE 0.9% 1000 ML INFUS.BAG IV ONE (17:06)
[2021-05-11] MEDS ORDERED: ACETAMINOPHEN 1000 MG/100 ML BAG IVPB ONE (17:06)
[2021-05-11 17:16] VITALS: TEMP 98.8; BMI 25.6
[2021-05-11] MEDS ORDERED: ACETAMINOPHEN INJECTION 100 ML IVPB ONE (17:57)
[2021-05-11 18:36] LABS: ALBUMIN 3.5 g/dl (3.4-5.0); BILIRUBIN,TOTAL 0.6 mg/dl (0.2-1); CALCIUM 9.3 mg/dl (8.5-10); CREATININE 0.8 mg/dl (0.55-1.3); TOT PROT 6.7 g/dl (6.4-8.2)
[2021-05-11 19:22] LABS: BASO % 0.3 % (0-2.0); EOS % 1.6 % (0-4.5); HEMATOCRIT 31.7 % (32.4-45.2); HEMOGLOBIN 10.9 GM/dL (10.7-15.3); LYMPH % 16.1 % (8-40); MCH 27.7 pg (25.7-33.7); MCHC 34.2 g/dl (32.0-36.0); MEAN PLT VOLUME 7.1 fl (7.5-11.1); MONO % 3.9 % (3.8-10.2); NEUT % 78.1 % (42.8-82.8); PLATELET COUNT 188 10^3/uL (134-434); RBC 3.92 M/mm3 (3.60-5.2); RDW 14.1 % (11.6-15.6); WHITE BLOOD COUNT 4.3 K/mm3 (4.0-10.0)
[2021-05-11 21:28] VITALS: BP 133/60; PULSE 76
== END 2021-05-11 21:31 | disposition home or self-care (01) ==
LOC: FER 17:00
PROC: 3E0333Z Introduction of Anti-inflammatory into Peripheral Vein, Percutaneous Approach (ICD-10-PCS; principal; 2021-05-11)
DX: R10.9 Unspecified abdominal pain (principal)
CPT/HCPCS: 36415; 74177-TC; 80053; 81003; 81015; 82962; 85025; 87086; 96374; 99285-25; Q9967